=== PATIENT | female | born 1995 | race African-American/Black ===

== ENCOUNTER 2019-03-08 13:00 | Emergency (ER) | payer OTHER ==
[~2019-03-08] VITALS: Ht 167.6 cm; Wt 61.7 kg
[2019-03-08] MEDS ORDERED: VENTOLIN HFA 1818 GM INH ×2 (13:13→16:46)
[2019-03-08 13:41] LABS: URINE BILIRUBIN NEGATIVE (Negative); URINE BLOOD TRACE (Negative); URINE CLARITY SL CLOUDY; URINE COLOR YELLOW; URINE GLUCOSE-RANDOM* NEGATIVE (Negative); URINE KETONES NEGATIVE (Negative); URINE LEUKOCYTES 2+ (Negative); URINE NITRITE NEGATIVE (Negative); URINE PROTEIN (DIPSTICK) NEGATIVE (Negative); URINE SPECIFIC GRAVITY 1.025 (1.005-1.035); URINE UROBILINOGEN 0.2 E.U./dl (0.2-1.0)
[2019-03-08 13:57] LABS: ABSOLUTE NEUTROPHILS 12.6 thou/uL (1.4-8.2); BASOPHILS 0.7 % (0.0-2.0); EOSINOPHILS 0.7 % (0.0-3.0); HEMATOCRIT 34.1 % (37.0-47.0); HEMOGLOBIN 11.8 gm/dL (12.0-15.0); LYMPHOCYTES 11.3 % (24.0-44.0); MCH 25.4 pg (26.0-34.0); MCHC 34.6 g/dL (28.0-37.0); MCV 73.4 fL (80.0-100.0); MONOCYTES 11.8 % (1.0-8.0); PLATELET COUNT 363 thou/uL (150-400); POLYS 75.5 % (36.0-66.0); RBC 4.65 mil/uL (4.20-5.00); RDW 15.9 % (10.5-14.5); WBC 16.7 thou/uL (4.0-11.0)
[2019-03-08 14:04] LABS: BACTERIA 1-9 Few /HPF (None Seen); CASTS None Seen /LPF (None Seen); CRYSTALS None Seen /LPF (None Seen); SQUAMOUS 4-10 Moderate /LPF (0-3); URINE RBC 0-2 Rare /HPF (0-2)
[2019-03-08 14:07] LABS: CALCIUM 9.1 mg/dL (8.5-10.1); CREATININE 0.8 mg/dL (0.6-1.0); POTASSIUM 3.8 mmol/L (3.5-5.1)
[2019-03-08 14:13] LABS: ALBUMIN 3.5 g/dL (3.4-5.0); DIRECT BILIRUBIN 0.1 mg/dL (<0.1-0.3); TOTAL BILIRUBIN 0.4 mg/dL (<0.1-1.0); TOTAL PROTEIN 7.5 g/dL (6.4-8.2)
[2019-03-08] MEDS ORDERED: DOXYCYCLINE 10100 MG PO (16:46)
[2019-03-08] MEDS ORDERED: FLAGYL500 M1 PO (16:46)
[2019-03-08 17:07] VITALS: BP 122/74
== END 2019-03-08 17:00 | disposition home or self-care (01) ==
LOC: ER 13:00
PROVIDERS: Nurse Practitioner
DX: N73.0 Acute parametritis and pelvic cellulitis (principal); Z20.2 Contact with and (suspected) exposure to infections with a predominantly sexual mode of transmission; Z88.1 Allergy status to other antibiotic agents

== ENCOUNTER 2020-04-11 12:06 | Emergency (ER) | payer OTHER ==
[~2020-04-11] VITALS: Ht 167.6 cm; Wt 66.2 kg
[~2020-04-11 12:06] MED LIST: DOXYCYCLINE 10100 MG PO; FLAGYL500 M1 PO; VENTOLIN HFA 1818 GM INH
[2020-04-11 12:10] VITALS: BP 127/77
[2020-04-11] MEDS ORDERED: PRENATAL GUMMI1 EACH PO (12:17)
[2020-04-11] MEDS ORDERED: NORCO 5-325 TA1 EAC1 PO (13:42)
== END 2020-04-11 15:07 | disposition home or self-care (01) ==
LOC: ER 12:06
DX: O9A.212 Injury, poisoning and certain other consequences of external causes complicating pregnancy, second trimester (principal); S92.512A Displaced fracture of proximal phalanx of left lesser toe(s), initial encounter for closed fracture; Z3A.24 24 weeks gestation of pregnancy; Z79.899 Other long term (current) drug therapy; Z88.1 Allergy status to other antibiotic agents; W22.03XA Walked into furniture, initial encounter; Y93.89 Activity, other specified; Y92.098 Other place in other non-institutional residence as the place of occurrence of the external cause; Y99.8 Other external cause status

== ENCOUNTER → 2020-10-27 | Emergency (ER) | payer OTHER ==
[~2020-10-27] VITALS: Ht 167.6 cm; Wt 70.3 kg
[~2020-10-27] MED LIST changes: +NORCO 5-325 TA1 EAC1 PO; +PRENATAL GUMMI1 EACH PO
[2020-10-27 11:11] VITALS: BP 129/88
== END ==
LOC: ER 09:11
DX: R22.0 Localized swelling, mass and lump, head (principal); J45.909 Unspecified asthma, uncomplicated; Z79.899 Other long term (current) drug therapy; Z88.1 Allergy status to other antibiotic agents